=== PATIENT | male | born 1995 | race Caucasian/White ===

== ENCOUNTER 2020-10-16 19:08 | Emergency (ER) | payer OTHER ==
[~2020-10-16] VITALS: Ht 167.6 cm; Wt 81.6 kg
[2020-10-16 19:15] VITALS: Ht 167.6 cm; Wt 81.6 kg
[2020-10-16 20:01] VITALS: BP 105/61
== END 2020-10-16 20:01 | disposition other institution (70) ==
LOC: ED 19:08
DX: Z02.89 Encounter for other administrative examinations (principal)